=== PATIENT | male | born 1965 | race Hispanic/Latino ===

== ENCOUNTER 2020-05-27 10:47 | Outpatient (CLI) | payer BC, SELFPAY ==
--- NOTE | ~2020-05-27 | MR_ITS ---
EXAMINATION: MR brain/brain stem wo/w con EXAM DATE: 05/27/2020 11:55 INDICATION: Dizziness for one year. Getting worse. No recent trauma. TECHNIQUE: Multi-sequential, multiplanar MR images of the brain, brainstem, internal auditory canals were obtained without contrast. Whole brain sagittal T1, axial diffusion, gradient echo (T2*), T1, T 2, FLAIR sequences obtained. High resolution coronal 3-D FIESTA, coronal T1 FSE, axial T1 FSPGR of t he internal auditory canals. Patient was then injected with 20 cc Multihance contrast intravenously. Postcontrast axial and coronal T1 weighted whole brain, axial and coronal high resolution T1 IAC seq uences obtained. There is no prior study for comparison. FINDINGS: No evidence of mastoid or middle ear opacification. The 7th/8th cranial nerve complexes a re symmetric, normal in course and caliber. No cerebellopontine angle masses. Posterior fossa unrem arkable. There are no areas of restricted diffusion to suggest acute infarction. There is no acute hemorrhage seen on the T2*, a hemosiderin sensitive sequence. No intraparenchymal brain mass. The ventricles a re normal in size. There are no extra-axial collections. Flow voids are seen in the cerebral arteri es on the T2-weighted sequences consistent with their expected patency. The orbits are unremarkable. Soft tissue is unremarkable. There are no areas of abnormal enhancement on the postcontrast image s. IMPRESSION: 1. Unremarkable brain MRI examination. Reviewed, dictated and finalized at location A.
[2020-05-27 11:23] LABS: Estimated Glomerular Filt Rate > 60
== END 2020-05-27 10:48 ==
PROVIDERS: PCP Student in an Organized Health Care Education/Training Program; Visit Provider Student in an Organized Health Care Education/Training Program
DX: R42 Dizziness and giddiness (principal)
CPT/HCPCS: 70553; A9577

== ENCOUNTER 2021-11-18 17:21 | Emergency (ER) | payer OTHER, SELFPAY ==
--- NOTE | ~2021-11-18 | XR_ITS ---
EXAMINATION: XR finger 2nd LT min 2V DATE: 11/18/2021 17:41 INDICATION: Smashing injury to the distal phalanx of the left second digit with numbness and bruising TECHNIQUE: Dorsal palmar, lateral and oblique views of the left second digit were obtained COMPARISON: None FINDINGS: Bone alignment is normal. No fracture. Joint spaces are normal. Mild radial side predominant soft tis shahrzad swelling about the second digit. IMPRESSION: 1. No osseous abnormality. Reviewed, dictated and finalized at location A. [employer] WORK[employer] IMPRESSION: 1. No osseous abnormality.
[2021-11-18 17:23] VITALS: BP 146/85; PULSE 64; RESP 14; TEMP 36.3; O2SAT 98
--- NOTE | 2021-11-18 17:49 | ED.UPPEXIN ---
HPI - Extremity Injury (Upper) General Chief Complaint: Extremity Injury, Upper Stated Complaint: Left hand complaint Time Seen by Provider: 11/18/21 17:27 Source: patient Mode of arrival: ambulatory Limitations: no limitations History of Present Illness HPI narrative: 56-year-old male presents today with complaints of right second digit pain. Patient states he piece of wood hit his finger. Subungual hematoma noted. Patient denies numbness to tingling. Full ROM noted. Patient unsure of tetanus. Related Data Allergies Allergy/AdvReac Type Severity Reaction Status Date / Time No Known Allergies Allergy Verified 11/18/21 18:06 Review of Systems Review of Systems: CONSTITUTIONAL: Denies fever, chills, or sweats. EYES: Denies visual changes, redness, or discharge. ENT: Denies rhinorrhea, congestion, sore throat, or otalgia. CARDIOVASCULAR: Denies chest pain, palpitations, or edema. RESPIRATORY: Denies cough or dyspnea. GASTROINTESTINAL: Denies abdominal pain, nausea, vomiting, or diarrhea. GENITOURINARY: Denies dysuria or hematuria. SKIN: Denies rash or itching. 2nd digit nail purple. MUSCULOSKELETAL: Denies back pain, joint pain, or myalgia. NEUROLOGIC: Denies headache, numbness, dizziness, or weakness. PSYCHIATRIC: Denies anxiety or depression. Exam Narrative: GENERAL: Well-appearing, well-nourished, and in no acute distress. HEAD: Normocephalic, atraumatic. EYES: PERRLA and EOMI. ENT: Nares clear, no rhinorrhea or epistaxis. Mucous membranes moist. Oropharynx without tonsillar hypertrophy exudate or other lesions. Bilateral TMs pearly sandy nonbulging NECK: Supple. No adenopathy or masses. No carotid bruits or JVD CHEST: Clear to auscultation. No respiratory distress. No wheezes rales or rhonchi HEART: Regular rate and rhythm. No murmur heard. Normal peripheral pulses. ABDOMEN: Soft, nontender, nondistended, normal active bowel sounds. EXTREMITIES: Second digit fingernail with subungual hematoma noted. Patient with full range of motion. CMS intact. No edema. SKIN: Warm, dry, no rash. NEURO: No focal deficits. Alert and oriented x3. PSYCH: Normal mood and affect. Course Vital Signs Vital signs: Vital Signs Temperature 36.3 C L 11/18/21 17:23 Pulse Rate 64 11/18/21 17:23 Respiratory Rate 14 11/18/21 17:23 Blood Pressure 146/85 H 11/18/21 17:23 Pulse Oximetry 98 11/18/21 17:23 Temperature 36.3 C L 11/18/21 17:23 Pulse Rate 81 11/18/21 19:00 Respiratory Rate 18 11/18/21 19:00 Blood Pressure 156/81 H 11/18/21 19:00 Pulse Oximetry 99 11/18/21 19:00 Procedures Other Procedure Procedure 1: Other Procedure: [id number]. Procedure explained, Verbal consent obtained. cautery used to drain Subungual hematoma. No anesthesia needed. Betadine to clean nail. Cautery used to burn hole in 2nd digit nail. Moderate amount of blood drained. patient noted relief in pain and pressure. MDM - Extremity Injury (Upper) Differential Diagnosis Differential diagnosis: Likely finger sprain and other (fracture of distal phalnyx, subungual hematoma) Medical Records Attestation: I reviewed the patient's medical records. Imaging Data Attestation: I personally reviewed and interpreted this imaging study as follows: Radiologist's impression: Impressions Finger X-Ray 11/18/21 18:00 IMPRESSION: 1. No osseous abnormality. Discharge Plan Discharge Clinical Impression: Subungual hematoma of fingernail Qualifiers: Encounter type: initial encounter Qualified Code(s): S60.10XA - Contusion of unspecified finger with damage to nail, initial encounter Patient Disposition: Home, Self-Care Condition: Improved Instructions: Antibiotic Form Additional Instructions: The area may continue to drain for a day or more. Please keep it clean and covered when possible. Your nail may end up falling off. Return for any new or worsening concerns. Follow-up/Referrals: Sandra,Ruddy
[2021-11-18] MEDS: ACETAMINOPHEN 500 MG TABLET 1000 MG PO (18:07)
[2021-11-18] MEDS: TETANUS,DIPHTHERIA,AC PERTUSSIS ADULT (0.5 ML) BOOSTRIX IM (18:07)
[2021-11-18 19:00] VITALS: BP 156/81; PULSE 81; RESP 18; O2SAT 99
== END 2021-11-18 19:00 | disposition home or self-care (01) ==
PROVIDERS: Emergency Provider Nurse Practitioner Family
DX: S60.121A Contusion of right index finger with damage to nail, initial encounter (principal); Z23 Encounter for immunization; W22.8XXA Striking against or struck by other objects, initial encounter
CPT/HCPCS: 11740; 73140; 90471; 90715; 99283; A9270

== ENCOUNTER 2021-12-09 19:59 | Emergency (ER) | payer OTHER, SELFPAY ==
[2021-12-09 20:28] VITALS: BP 155/83; PULSE 75; RESP 16; TEMP 37.2; O2SAT 98
--- NOTE | 2021-12-09 22:58 | ED.SKABFB ---
HPI - Skin/Abscess/Foreign Bdy General Chief complaint: Skin/Abscess/Foreign Body Stated complaint: growth on right nare Time Seen by Provider: 12/09/21 22:58 Source: patient and family Mode of arrival: ambulatory Limitations: no limitations History of Present Illness HPI narrative: Patient is a 56-year-old previously healthy male presenting to the emergency department for evaluation of swelling/sore to right nostril. Patient reports it has been present for the past 5 days. Initially presented as a pimple and he was able to express a small amount of pus from it. Patient states it continues to drain, and he has experienced some swelling of his nose. He denies any vision changes or eye pain. No significant facial swelling or redness of the cheeks or mandibular area. He denies difficulty swallowing, shortness of breath. No difficulty opening his mouth or tolerating oral intake. He denies fever or chills, nausea, vomiting, chest pain, abdominal pain. Patient denies history of skin infection in the past. He denies history of diabetes. Related Data Allergies Allergy/AdvReac Type Severity Reaction Status Date / Time No Known Allergies Allergy Verified 12/09/21 20:27 Review of Systems Review of Systems: CONSTITUTIONAL: Denies fever, chills HEENT: Denies rhinorrhea, denies sore throat, reports swelling to right nostril, nasal swelling, pain, purulent discharge CARDIOVASCULAR: Denies chest pain RESPIRATORY: Denies cough or dyspnea. GASTROINTESTINAL: Denies abdominal pain, nausea or vomiting SKIN: Denies rash, reports right naris swelling. MUSCULOSKELETAL: Denies back pain NEUROLOGIC: Denies headache REPLACED BY [facility] Social History Social History (Updated 12/09/21 @ 23:12 by Brittany Colón MD) Smoking status: Never smoker Alcohol intake: never Substance use: never Living arrangements: with family Gender identity (if verbalized by the patient): Male Exam Narrative: GENERAL: Awake, alert, conversant HEAD: Normocephalic, atraumatic. EYES: PERRLA and EOMI. ENT:No rhinorrhea or epistaxis. Mucous membranes moist. Patient with small abscess, right naris with edema to the tip of the nose and mild induration, erythema of nasal tip. This does not extend to nasal bridge. No facial edema, erythema or induration. No facial asymmetry. No trismus. Uvula is midline. No anterior or posterior cervical lymphadenopathy. No neck edema. NECK: Supple. CHEST: No respiratory distress, breathing even and non labored HEART: Regular rate, sinus rhythm ABDOMEN:Non distended, non tender EXTREMITIES: Normal range of motion. No edema. SKIN: Warm, dry, no rash. NEURO:No focal deficits. Alert and oriented x3. Patient ambulatory with a narrow base, steady gait. Course Vital Signs Vital signs: Vital Signs Temperature 37.2 C 12/09/21 20:28 Pulse Rate 75 12/09/21 20:28 Respiratory Rate 16 12/09/21 20:28 Blood Pressure 155/83 H 12/09/21 20:28 Pulse Oximetry 98 12/09/21 20:28 Temperature 37.2 C 12/09/21 20:28 Pulse Rate 75 12/09/21 20:28 Respiratory Rate 16 12/09/21 20:28 Blood Pressure 155/83 H 12/09/21 20:28 Pulse Oximetry 98 12/09/21 20:28 Procedures Abscess I/D face: Date of Incision: 12/09/21 Time of Incision: 23:13 Side (if applicable): right Sedation/analgesia: none Local Anesthetic: none Technique: other (hand expression, debridement ) Amount of fluid expressed (mL): 3 Irrigation: No Packing used?: none I&D Results: Pus and Blood MDM - Skin/Abscess/Foreign Bdy MDM Narrative Medical decision making narrative: Patient presented for evaluation of sore to nasal bridge. Patient with small abscess, surrounding cellulitis, mild induration of the tip of the nose. That excoriated abscess was debrided, with gentle hand expression, purulent discharge was expressed. There is no large significant tracking to deloculated. No packing needs to be plac
[2021-12-09] MEDS: ACETAMINOPHEN 500 MG TABLET 1000 MG PO (23:45)
[2021-12-09] MEDS: CLINDAMYCIN HCL 150 MG CAP 300 MG PO (23:46)
[2021-12-09 23:55] VITALS: BP 157/90; PULSE 76; RESP 16; O2SAT 97
== END 2021-12-09 23:56 | disposition home or self-care (01) ==
PROVIDERS: Emergency Provider Emergency Medicine
DX: J34.0 Abscess, furuncle and carbuncle of nose (principal)
CPT/HCPCS: 10060; 99283; A9270

== ENCOUNTER 2022-04-13 00:19 | Emergency (ER) | payer OTHER, SELFPAY ==
[2022-04-13] VITALS (13 sets, daily range): BP systolic 126–154; BP diastolic 68–87; PULSE 78–101; RESP 16–20; TEMP 37.2–37.7; O2SAT 93–100
--- NOTE | 2022-04-13 01:58 | ED.FEVER ---
HPI - Fever General Chief Complaint: Fever Stated Complaint: FEVER,HEAT EXPOSURE Time Seen by Provider: 04/13/22 01:44 History of Present Illness HPI Narrative: Patient is a 56-year-old male who presents ER with fevers and chills. Ongoing for 2 days. Reports he has been working out in the heat and is wondering if he is just dehydrated. He did take a home COVID test prior to arrival and reports was negative. No nausea or vomiting or diarrhea. No urinary frequency urgency or dysuria. No sinus congestion or sore throat or productive cough. Denies knowledge of sick contacts. Patient is both vaccinated and boosted against COVID. Related Data Allergies Allergy/AdvReac Type Severity Reaction Status Date / Time No Known Allergies Allergy Verified 04/13/22 03:09 Review of Systems Review of Systems: All systems reviewed & are unremarkable except as noted in HPI and below Constitutional: Constitutional: Reports chills, Reports fatigue and Reports fever(s) ENT: Denies nasal congestion and Denies sore throat Respiratory: Respiratory: Denies chest congestion, Denies cough and Denies dyspnea Gastrointestinal: Gastrointestinal: Denies abdominal pain, Denies diarrhea, Denies nausea and Denies vomiting Genitourinary: Genitourinary: Denies dysuria and Denies urinary frequency PMFSH Past Medical History Medical History (Updated 04/13/22 @ 03:47 by Andriy Singh MD) Patient denies significant medical history Surgical History Surgical History (Updated 04/13/22 @ 02:00 by Andriy Singh MD) No pertinent past surgical history Social History Social History (Updated 12/09/21 @ 23:12 by Brittany Colón MD) Smoking status: Never smoker Alcohol intake: never Substance use: never Gender identity (if verbalized by the patient): Male Exam Narrative: GENERAL: Well-appearing, well-nourished, and in no acute distress. HEAD: Normocephalic, atraumatic. ENT: Mucous membranes moist. Well-appearing posterior oropharynx. CHEST: Clear to auscultation. No respiratory distress. HEART: Tachycardic and regular. Normal peripheral pulses. ABDOMEN: Soft, nontender, nondistended. EXTREMITIES: Normal range of motion. No edema. NEURO: Alert and oriented x3. PSYCH: Normal mood and affect. Course Reevaluation(s) Reevaluation #1: Patient resting comfortably. Informed of results. Patient having no symptoms other than fever. Discussed treatment for home. Date: 04/13/22 Time: 03:43 Vital Signs Vital signs: Vital Signs Temperature 99.9 F H 04/13/22 00:27 Pulse Rate 101 H 04/13/22 00:27 Respiratory Rate 16 04/13/22 00:27 Blood Pressure 154/84 H 04/13/22 00:27 Pulse Oximetry 96 04/13/22 00:27 Oxygen Delivery Room Air 04/13/22 00:27 Temperature 99.9 F H 04/13/22 00:27 Pulse Rate 87 04/13/22 03:08 Respiratory Rate 16 04/13/22 03:08 Blood Pressure 137/85 04/13/22 03:08 Pulse Oximetry 93 04/13/22 03:08 Oxygen Delivery Room Air 04/13/22 00:27 MDM - Fever Lab Data Result diagrams: 04/13/22 02:34 04/13/22 02:34 Labs: Lab Results 04/13/22 04/13/22 04/13/22 Range/Units 02:34 02:34 02:34 WBC 10.7 H (4.5-10.0) K/mm3 RBC 5.06 (4.6-6.20) M/mm3 Hgb 14.4 (14.0-18.0) g/dL Hct 44.6 (42.0-52.0) % MCV 88.1 (80-100) fl MCH 28.5 (26-34) pg MCHC 32.3 (32-36) g/dl RDW 13.0 (11.5-14.5) % Plt Count 203 (150-375) k/mm3 MPV 8.9 (7.4-10.4) fl Immature Gran % (Auto) 0.4 (0-0.5) % Neut % (Auto) 79.8 H (45.5-73.1) % Lymph % (Auto) 11.4 L (18.3-44.2) % [place] % (Auto) 8.0 (2.6-8.5) % Eos % (Auto) 0.2 (0-4.4) % Baso % (Auto) 0.2 (0.2-1.2) % Lymph # (Auto) 1.22 (0.9-3.2) K/mm3 [place] # (Auto) 0.9 H (0.1-0.6) K/mm3 Eos # (Auto) 0.0 (0-0.3) K/mm3 Baso # (Auto) 0.0 (0.0-0.1) K/mm3 Abs Immat Gran (auto) 0.04 H (0.00-0.031) K/mm3 Absolute Neuts (auto) 8.5 H (1.3-6
[2022-04-13] MEDS: ACETAMINOPHEN 500 MG TABLET 1000 MG PO (02:27)
[2022-04-13] MEDS: SODIUM CHLORIDE 0.9% IV 1,000 ML 999 ML IV CONT (02:27)
[2022-04-13 02:41] LABS: Basophils Percent Auto 0.2 % (0.2-1.2); Eosinophils Percent Auto 0.2 % (0-4.4); Hematocrit 44.6 % (42.0-52.0); Hemoglobin 14.4 g/dL (14.0-18.0); Immature Granulocyte Absolute 0.04 K/mm3 (0.00-0.031); Immature Granulocyte Percent A 0.4 % (0-0.5); Lymphocytes Absolute Auto 1.22 K/mm3 (0.9-3.2); Lymphocytes Percent Auto 11.4 % (18.3-44.2); Mean Corpuscular HGB Conc 32.3 g/dl (32-36); Mean Corpuscular Hemoglobin 28.5 pg (26-34); Mean Corpuscular Volume 88.1 fl (80-100); Mean Platelet Volume 8.9 fl (7.4-10.4); Monocytes Absolute Auto 0.9 K/mm3 (0.1-0.6); Neutrophils Absolute Auto 8.5 K/mm3 (1.3-6.7); Neutrophils Percent Auto 79.8 % (45.5-73.1); Platelet Count Result 203 k/mm3 (150-375); Red Blood Count 5.06 M/mm3 (4.6-6.20); White Blood Count 10.7 K/mm3 (4.5-10.0)
[2022-04-13 02:52] LABS: Anion Gap 9 mmol/L (8-16); Blood Urea Nitrogen 12 mg/dL (9-20); Calcium 8.7 mg/dL (8.4-10.2); Carbon Dioxide 24 mmol/L (22-30); Chloride 101 mmol/L (98-107); Estimated CRCL calculation 96 ml/min; Estimated Glomerular Filt Rate > 60; Glucose 123 mg/dL (65-110); Potassium 3.9 mmol/L (3.4-5.0); Sodium 134 mmol/L (137-145)
[2022-04-13 03:18] LABS: Influenza A QL RT-PCR Negative (Negative); Influenza B QL RT-PCR Negative (Negative); SARS-CoV-2 RNA PCR Negative
== END 2022-04-13 04:00 | disposition home or self-care (01) ==
PROVIDERS: Emergency Provider Emergency Medicine
DX: B34.9 Viral infection, unspecified (principal); Z20.822 Contact with and (suspected) exposure to COVID-19
CPT/HCPCS: 36415; 80048; 85025; 87502; 96360; 99283; A9270; C9803; J7030; U0003; U0005

== ENCOUNTER 2022-04-14 09:40 | Emergency (ER) | payer OTHER, SELFPAY ==
[2022-04-14] VITALS (15 sets, daily range): BP systolic 107–147; BP diastolic 65–87; PULSE 84–102; RESP 16; TEMP 38.8; O2SAT 93–100
--- NOTE | ~2022-04-14 | XR_ITS ---
XR chest 2V DATE: 04/14/2022 12:42 INDICATION: Fever TECHNIQUE: PA and lateral views COMPARISON: None FINDINGS: There is prominent patchy consolidating in the left upper lobe likely due to pneumonia. Con tinued radiographic follow-up is recommended to ensure clearing in order to exclude any possible obst ructing endobronchial lesion. Mild infiltrate or atelectasis is suggested in the left lower lobe. Normal heart size. No pulmonary vascular congestion or pleural effusion or pneumothorax. Degenerative spurring of the thoracic spine. IMPRESSION: Prominent left upper lobe patchy consolidation, probable infiltrate or atelectasis, left lower lobe. Continued radiographic follow-up recommended to show clearing. Reviewed, dictated and finalized at location B.
--- NOTE | 2022-04-14 10:00 | WPDEDEXPGENP ---
HPI - General Ped General Chief complaint: Fever Stated complaint: fever, vomiting Time Seen by Provider: 04/14/22 09:42 History of Present Illness HPI narrative: 56-year-old male returns to the emergency room for continued subjective fever and generalized malaise. Patient states he was seen in the emergency room yesterday for similar symptoms. Patient was diagnosed with viral syndrome. Patient states he continues to take Tylenol and ibuprofen to manage his fever, but it keeps coming back. Patient now complaining nausea and vomiting. Denies any abdominal pain. Related Data Allergies Allergy/AdvReac Type Severity Reaction Status Date / Time No Known Allergies Allergy Verified 04/14/22 10:16 Pediatric Review of Systems Review of Systems: CONSTITUTIONAL: Reports fever EYES: Denies visual changes, redness, or discharge. ENT: Denies rhinorrhea, congestion, sore throat, or otalgia. CARDIOVASCULAR: Denies chest pain, palpitations, or edema. RESPIRATORY: Denies cough or dyspnea. GASTROINTESTINAL: Reports nausea vomiting GENITOURINARY: Denies dysuria or hematuria. SKIN: Denies rash or itching. MUSCULOSKELETAL: Denies back pain, joint pain, or myalgia. NEUROLOGIC: Denies headache, numbness, dizziness, or weakness. PSYCHIATRIC: Denies anxiety or depression. COUNT INCLUDES THE [facility] Past Medical History Medical History Patient denies significant medical history Surgical History Surgical History No pertinent past surgical history Social History Social History Smoking status: Never smoker Alcohol intake: never Substance use: never Gender identity (if verbalized by the patient): Male Pediatric Exam Narrative: Physical exam: GENERAL: Well-appearing, well-nourished, no physical limitations, and in no acute distress. HEAD: Normocephalic, atraumatic. EYES: Conjunctivae normal, PERRLA and EOMI. CHEST: Clear to auscultation. No respiratory distress. No wheezes rales or rhonchi. No tenderness. HEART: Regular rate and rhythm. No murmur heard. Normal peripheral pulses. ABDOMEN: Soft, nontender, nondistended, normal active bowel sounds. EXTREMITIES: Normal range of motion. No edema. No clubbing or cyanosis SKIN: Warm, dry, no rash. No noted wounds NEURO: No focal deficits. Alert and oriented x3. MAEW. CN's II-XI intact bilaterally, normal gait PSYCH: Cooperative. Normal mood and affect. Course Vital Signs Vital signs: Vital Signs Pulse Rate 102 H 04/14/22 10:11 Respiratory Rate 16 04/14/22 10:11 Blood Pressure 147/85 H 04/14/22 10:11 Pulse Oximetry 98 04/14/22 10:11 Oxygen Delivery Room Air 04/14/22 10:11 Temperature 38.8 C H 04/14/22 11:19 Pulse Rate 102 H 04/14/22 10:11 Respiratory Rate 16 04/14/22 10:11 Blood Pressure 147/85 H 04/14/22 10:11 Pulse Oximetry 99 04/14/22 10:30 Oxygen Delivery Room Air 04/14/22 10:11 Medical Decision Making Vital Signs Vital Signs: Vital Signs Pulse Rate 102 H 04/14/22 10:11 Respiratory Rate 16 04/14/22 10:11 Blood Pressure 147/85 H 04/14/22 10:11 Pulse Oximetry 98 04/14/22 10:11 Oxygen Delivery Room Air 04/14/22 10:11 Temperature 38.8 C H 04/14/22 11:19 Pulse Rate 102 H 04/14/22 10:11 Respiratory Rate 16 04/14/22 10:11 Blood Pressure 147/85 H 04/14/22 10:11 Pulse Oximetry 99 04/14/22 10:30 Oxygen Delivery Room Air 04/14/22 10:11 Lab Data Result diagrams: 04/14/22 10:12 04/14/22 10:12 Labs: Lab Results 04/14/22 04/14/22 04/14/22 Range/Units 10:12 10:12 10:12 WBC 10.0 (4.5-10.0) K/mm3 RBC 4.92 (4.6-6.20) M/mm3 Hgb 14.2 (14.0-18.0) g/dL Hct 43.4 (42.0-52.0) % MCV 88.2 (80-100) fl MCH 28.9 (26-34) pg MCHC 32.7 (32-36) g/dl RDW 13.1 (11.5-14.5) % Plt Count 209 (150-3
[2022-04-14 10:21] LABS: Basophils Percent Auto 0.1 % (0.2-1.2); Hematocrit 43.4 % (42.0-52.0); Hemoglobin 14.2 g/dL (14.0-18.0); Immature Granulocyte Absolute 0.05 K/mm3 (0.00-0.031); Immature Granulocyte Percent A 0.5 % (0-0.5); Lymphocytes Absolute Auto 0.71 K/mm3 (0.9-3.2); Lymphocytes Percent Auto 7.1 % (18.3-44.2); Mean Corpuscular HGB Conc 32.7 g/dl (32-36); Mean Corpuscular Hemoglobin 28.9 pg (26-34); Mean Corpuscular Volume 88.2 fl (80-100); Monocytes Absolute Auto 0.5 K/mm3 (0.1-0.6); Monocytes Percent Auto 5.4 % (2.6-8.5); Neutrophils Absolute Auto 8.7 K/mm3 (1.3-6.7); Neutrophils Percent Auto 86.9 % (45.5-73.1); Platelet Count Result 209 k/mm3 (150-375); Red Blood Count 4.92 M/mm3 (4.6-6.20); Red Cell Distribution Width 13.1 % (11.5-14.5)
[2022-04-14 10:29] LABS: Alanine Aminotransferase 52 U/L (6-50); Albumin Level 4.1 g/dL (3.5-5.1); Alkaline Phosphatase 112 U/L (38-126); Anion Gap 11 mmol/L (8-16); Aspartate Amino Transferase 47 U/L (17-59); Bilirubin,Total 0.6 mg/dL (0.2-1.3); Blood Urea Nitrogen 11 mg/dL (9-20); Calcium 8.6 mg/dL (8.4-10.2); Carbon Dioxide 25 mmol/L (22-30); Chloride 99 mmol/L (98-107); Estimated CRCL calculation 87 ml/min; Estimated Glomerular Filt Rate > 60; Glucose 156 mg/dL (65-110); Lactic Acid Reflex 1.7 mmol/L (0.7-2.0); Potassium 4.1 mmol/L (3.4-5.0); Sodium 135 mmol/L (137-145)
[2022-04-14] MEDS: SODIUM CHLORIDE 0.9% IV 1,000 ML 999 ML IV CONT (10:32)
[2022-04-14] MEDS: ONDANSETRON INJ 4 MG/2 ML VIAL IV PUSH (10:33)
--- NOTE | 2022-04-14 11:03 | PC.NURSE ---
Patient report given to FRANCOIS Thomas. All questions answered and care of patient transferred.
[2022-04-14 11:21] LABS: Add Urine Microscopic? YES; Appearance Urine Clear (Clear); Bilirubin Urine Negative (Negative); Blood Urine 1+ (Negative); Color Urine Yellow (Yellow); Glucose Urine UA Trace mg/dL (Negative); Ketones Urine Negative (Negative); Leukocyte Esterase Ur Negative LEU/UL (Negative); Nitrate Urine Negative (Negative); Protein Urine 2+ mg/dL (Negative); pH Urine 7.5 (5.0-9.0)
[2022-04-14 11:27] LABS: Cellular Casts Urine Present /lpf; Mucus Urine Rare /lpf; RBC Urine 0-2 /hpf (0-2); WBC Urine 0-3 /hpf
[2022-04-14] MEDS: ACETAMINOPHEN 500 MG TABLET 1000 MG PO (12:05)
[2022-04-14 13:07] LABS: SARS-CoV-2 RNA PCR Negative
== END 2022-04-14 13:49 | disposition home or self-care (01) ==
PROVIDERS: Emergency Provider Nurse Practitioner Family
DX: J18.9 Pneumonia, unspecified organism (principal); Z20.822 Contact with and (suspected) exposure to COVID-19
CPT/HCPCS: 36415; 71046; 80053; 81001; 83605; 85025; 96361; 96365; 96375; 99284; A9270; C9803; J0696; J2405; J7030; U0003; U0005

== ENCOUNTER 2025-02-17 18:17 | Emergency (ER) | payer OTHER, SELFPAY ==
--- NOTE | ~2025-02-17 | XR_ITS ---
XR chest 1V portable Ordering provider: Ulysses Boyce MD History: 59 years Male with . fever . Comparison: April 14, 2022 FINDINGS: MEDIASTINUM: The cardiac silhouette is not enlarged. LUNGS: No infiltrates, effusions or pneumothorax. OTHER: No free air under the diaphragm. IMPRESSION: No acute cardiopulmonary pathology. Reviewed, dictated and finalized at location A.
--- OUTSIDE RECORDS SUMMARY | 2025-02-17 18:19 | XMS_ITS | Data Portability ---
Author Organization [facility] Address [address] [facility] [place] [address] Care Team Providers Care Varnish Inspector Name Role Phone ANDREWRUPALI Primary Care Provider Assessment No assessment recorded. Plan of Treatment Reminders Order Date Submit Date Provider Last Modified By Organization Details Last Modified Time Details Appointments None recorded. Lab noninvasiv e colorectal cancer DNA + occult blood screening, QL, stool 2022 023 [facility] (Cologuard Orders Only), [address], [address], [place], [address], 3 19:56:54 CBC w/ auto diff 2022 023 [facility], [address] [place] [address], [address], [place], [address], 3 02:08:33 CMP, serum or plasma 2022 023 [facility], [address] [place] [address], [address], [place], [address], 3 02:08:32 lipid panel, serum 2022 023 [facility], [address] [place] [address], [address], [place], [address], 3 02:08:32 HbA1c (hemoglobi n A1c), blood 2022 023 [facility], [address], [address], [place], [address], 3 12:13:00 TSH + free T4, serum 2022 023 [facility], [address], [address], [place], [address], 3 12:12:59 PSA, total, serum or plasma 2022 023 [facility], [address], [address], [place], [address], 3 12:13:00 hepatic function panel, serum 2014 015 dev [facility], [address] [facility], [address], [place], [address], 5 11:25:41 Referral None recorded. Procedures colonoscop y procedure (PROC) - Is patient on blood thinners?: NPacemaker or defibrilla tor?: NPrep (Colonosco py Procedure) : PEG 3350, Go Lytely, Colyte or Gavalyte G, depending on insurance coverageIf patient has had coronary / vascular stent, provide date: NoIf patient has had heart attack or stroke, provide date: NoHas patient ever had problems with anesthesia or sedation?: NoHas patient had problems with opening mouth or breathing tubes?: NoDoes patient use a wheelchair ?: N [facility] [address], [place], [address], 4 11:21:42 Surgeries None recorded. Imaging None recorded. Medication Orders Dulcolax (bisacodyl ) 5 mg tablet,del ayed release 2023 024 [id number], [address], [place], [place], [id number], 4 10:49:34 Miralax 17 gram/dose oral powder 2023 024 [id number], [address], [place], [place], [id number], 4 10:49:28 Patient TargetsNo targets recorded. Patient Instructions Encounter Date Encounter Id Patient Instructions Last Modified By Organization Details Last Modified Time 08/16/2023 [id number] A healthy lifestyle: care instructions [email or web address] Not available 08/16/2023 13:40:16 10/04/2023 [id number] RL About Your Colonoscopy 1 Day Prep [email or web address] Not available 10/04/2023 10:49:11 Reason for Referral None Reported. Results Created Date Observation Date Name Description Value Unit Range Abnormal Flag Note LastModifiedBy Organization Detail LastModifiedTime 10/24/19 15 10/27/2014 hepat ic funct ion panel , serum total protein 7.5 g/dL REFER ENCE RANGE : CHILD TERESA AND ADULT S: 6.0 - 8.5 Not Available [facility] [address] [place], [address], 10/28/2014 06:09:21 10/24/19 15 10/27/2014 hepat ic funct ion panel , serum albumin 4.6 g/dL REFER ENCE RANGE : 3 - 59Y: 3.5 - 5.5 Not Available [facility] [address] [place], [address], 10/28/2014 06:09:21 10/24/19 15 10/27/2014 hepat ic funct ion panel , serum bilirubin, total 0.3 mg/dL REFER ENCE RANGE : >=18Y : <1.3 Not Available [facility] [address] [place], [address], 10/28/2014 06:09:21 10/24/19 15 10/27/2014 hepat ic funct ion panel , serum bilirubin, direct <0.10 mg/dL REFER ENCE RANGE : CHILD TERESA AND ADULT S: <0.41 Not Available [facility] [address] [place], [address], 10/28/2014 06:09:21 10/24/19 15 10/27/2014 hepat ic funct ion panel , serum alkaline phosphatase 83 U/L REFER ENCE RANGE : >=19Y : <131 Not Available [facility] [address] [place], [address], 10/28/2014 06:09:21 10/24/19 15 10/27/2014 hepat ic funct ion panel , serum AST (SGOT) 20 U/L REFER ENCE RANGE : >=18Y : <38 Not Available [facility] [address] [place], [address], 10/28/2014 06:09:21 10/24/19 15 10/27/2014 hepat ic funct ion panel , serum ALT (SGPT) 15 IU/L REFER ENCE RANGE : >17Y: 0 - 44 Not Available [facility] [address] [place], [address], 10/28/2014 06:09:21 02/25/20 15 02/25/2015 CBC WBC 6.0 x10e3 /uL 3.4-10 .8 Not Available [facility] ([facility]) [address] [place], [address], 02/25/2015 06:20:21 02/25/20 15 02/25/2015 CBC RBC 5.12 x10e6 /uL 4.14-5 .80 Not Available [facility] ([facility]) [address] [place], [address], 02/25/2015 06:20:21 02/25/20 15 02/25/2015 CBC hemoglobin 14.9 g/dL 12.6-1 7.7 Not Available [facility] ([facility]) [address] [place], [address], 02/25/2015 06:20:21 02/25/20 15 02/25/2015 CBC hematocrit 44.3 % 37.5-5 1.0 Not Available [facility] ([facility]) [address] [place], [address], 02/25/2015 06:20:21 02/25/20 15 02/25/2015 CBC MCV 87 fL 79-97 Not Available [facility] ([facility]) [address] [place], [address], 02/25/2015 06:20:21 02/25/20 15 02/25/2015 CBC MCH 29.1 pg 26.6-3 3.0 Not Available [facility] ([facility]) [address] [facility] [place], [address], 02/25/2015 06:20:21 02/25/2002/25/2015 CBC MCHC 33.6 g/dL 31.5-3 5.7 Not Available [facility] ([facility]) [address] [facility] [place], [address], 02/25/2015 06:20:21 02/25/20 15 02/25/2015 CBC RDW 13.9 % 12.3-1 5.4 Not Available [facility] ([facility]) [address] [facility] [place], [address], 02/25/2015 06:20:21 02/25/2002/25/2015 CBC platelets 247 x10e3 /uL 150-37 9 Not Available [facility] ([facility] [address] [facility] [place], [address], 02/25/2015 06:20:21 02/25/2002/25/2015 CBC neutrophils 68 % Not Avai lable [facility] ([facility]) [address] [facility] [place], [address], 02/25/2015 06:20:21 02/25/20 15 02/25/2015 CBC lymphs 23 % Not Available [facility] ([facility]) [address] [place], [address], 02/25/2015 06:20:21 02/25/20 15 02/25/2015 CBC monocytes 6 % Not Availa ble [facility] ([facility]) [address] [place], [address], 02/25/2015 06:20:21 02/25/20 15 02/25/2015 CBC eos 3 % Not Available [facility] ([facility]) [address] [place], [address], 02/25/2015 06:20:21 02/25/20 15 02/25/2015 CBC basos 0 % Not Available [facility] ([facility]) [address] [place], [address], 02/25/2015 06:20:21 02/25/20 15 02/25/2015 CBC immature cells TURNSTILE ATTENDANT Not Available [facility] ([facility]) [address] [place], [address], 02/25/2015 06:20:21 02/25/20 15 02/25/2015 CBC neutrophils (absolute) 4.1 x10e3 /uL 1.4-7. 0 Not Available [facility] ([facility]) [address] [place], [address], 02/25/2015 06:20:21 02/25/20 15 02/25/2015 CBC lymphs (absolute) 1.4 x10e3 /uL 0.7-3. 1 Not Available [facility] ([facility]) [address] [place], [address], 02/25/2015 06:20:21 02/25/20 15 02/25/2015 CBC monocytes(ab solute) 0.3 x10e3 /uL 0.1-0. 9 Not Available [facility] ([facility]) [address] [facility] [place], [address], 02/25/2015 06:20:21 02/25/20 15 02/25/2015 CBC eos (absolute) 0.2 x10e3 /uL 0.0-0. 4 Not Available [facility] ([facility]) [address] [facility] [place], [address], 02/25/2015 06:20:21 02/25/20 15 02/25/2015 CBC baso (absolute) 0.0 x10e3 /uL 0.0-0. 2 Not Available [facility] ([facility]) [address] [facility] [place], [address], 02/25/2015 06:20:21 02/25/2002/25/2015 CBC immature granulocytes 0 % Not Available [facility] ([facility]) [address] [facility] [place], [address], 02/25/2015 06:20:21 02/25/2002/25/2015 CBC immature grans (abs) 0.0 x10e3 /uL 0.0-0. 1 Not Available [facility] ([facility]) [address] [facility] [place], [address], 02/25/2015 06:20:21 02/25/2002/25/2015 CBC NRBC TURNSTILE ATTENDANT Not Available [facility] ([facility]) [address] [facility] [place], [address], 02/25/2015 06:20:21 02/25/2002/25/2015 CBC hematology comments: TURNSTILE ATTENDANT Not Available [facility] ([facility]) [address] [facility] [place], [address], 02/25/2015 06:20:21 02/25/2002/25/2015 CMP, serum or plasm a glucose, serum 90 mg/dL 65-99 Not Available [facility] ([facility]) [address] [place], [address], 02/25/2015 06:20:22 02/25/20 15 02/25/2015 CMP, serum or plasm a BUN 13 mg/dL 6-24 Not Available [facility] ([facility]) [address] [facility], [place], [address], 02/25/2015 06:20:22 02/25/20 15 02/25/2015 CMP, serum or plasm a creatinine, serum 0.89 mg/dL 0.76-1 .27 Not Available [facility] ([facility]) [address] [place], [address], 02/25/2015 06:20:22 02/25/20 15 02/25/2015 CMP, serum or plasm a eGFR if nonafricn AM 102 mL/mi n/1.7 3 >59 Not Available [facility] ([facility]) [address] [place], [address], 02/25/2015 06:20:22 02/25/20 15 02/25/2015 CMP, serum or plasm a eGFR if africn AM 118 mL/mi n/1.7 3 >59 Not Available [facility] ([facility]) [address] [facility], [place], [address], 02/25/2015 06:20:22 02/25/20 15 02/25/2015 CMP, serum or plasm a BUN/creatini ne ratio 15 9-20 Not Available [facility] ([facility]) [address] [place], [address], 02/25/2015 06:20:22 02/25/20 15 02/25/2015 CMP, serum or plasm a sodium, serum 140 mmol/ L 134-14 4 Not Available [facility] ([facility]) [address] [place], [address], 02/25/2015 06:20:22 02/25/20 15 02/25/2015 CMP, serum or plasm a potassium, serum 4.5 mmol/ L 3.5-5. 2 Not Available [facility] ([facility]) [address] [facility] [place], [address], 02/25/2015 06:20:22 02/25/2002/25/2015 CMP, serum or plasm a chloride, serum 102 mmol/ L 97-108 Not Available [facility] ([facility]) [address] [facility] [place], [address], 02/25/2015 06:20:22 02/25/2002/25/2015 CMP, serum or plasm a carbon dioxide, total 21 mmol/ L 18-29 Not Available [facility] ([facility]) [address] [facility] [place], [address], 02/25/2015 06:20:22 02/25/20 15 02/25/2015 CMP, serum or plasm a calcium, serum 9.5 mg/dL 8.7-10 .2 Not Available [facility] ([facility]) [address] [place], [address], 02/25/2015 06:20:22 02/25/2002/25/2015 CMP, serum or plasm a protein, total, serum 7.4 g/dL 6.0-8. 5 Not Available [facility] ([facility]) [address] [place], [address], 02/25/2015 06:20:22 02/25/2002/25/2015 CMP, serum or plasm a albumin, serum 4.6 g/dL 3.5-5. 5 Not Available [facility] ([facility]) [address] [place], [address], 02/25/2015 06:20:22 02/25/2002/25/2015 CMP, serum or plasm a globulin, total 2.8 g/dL 1.5-4. 5 Not Available [facility] ([facility]) [address] [place], [address], 02/25/2015 06:20:22 02/25/20 15 02/25/2015 CMP, serum or plasm a A/G ratio 1.6 1.1-2. 5 Not Available [facility] ([facility]) [address] [facility] [place], [address], 02/25/2015 06:20:22 02/25/20 15 02/25/2015 CMP, serum or plasm a bilirubin, total 0.5 mg/dL 0.0-1. 2 Not Available [facility] ([facility]) [address] [facility] [place], [address], 02/25/2015 06:20:22 02/25/20 15 02/25/2015 CMP, serum or plasm a alkaline phosphatase, S 92 IU/L 39-117 Not Available [facility] ([facility]) [address] [facility] [place], [address], 02/25/2015 06:20:22 02/25/2002/25/2015 CMP, serum or plasm a AST (SGOT) 16 IU/L 0-40 Not Available [facility] ([facility]) [address] [facility] [place] [place], [address], 02/25/2015 06:20:22 02/25/20 15 02/25/2015 CMP, serum or plasm a ALT (SGPT) 14 IU/L 0-44 Not Available [facility] ([facility]) [address] [place], [address], 02/25/2015 06:20:22 02/25/2002/25/2015 urina lysis , compl ete specific gravity 1.025 1.005- 1.030 Not Available [facility] ([facility]) [address] [place], [address], 02/25/2015 06:20:22 02/25/2002/25/2015 urina lysis , compl ete pH 6.0 5.0-7. 5 Not Available [facility] ([facility]) [address] [place], [address], 02/25/2015 06:20:22 02/25/20 15 02/25/2015 urina lysis , compl ete urine-color YELLOW yellow Not Available [facility] ([facility]) [address] [place], [address], 02/25/2015 06:20:22 02/25/20 15 02/25/2015 urina lysis , compl ete appearance CLEAR clear Not Available [facility] ([facility]) [address] [place], [address], 02/25/2015 06:20:22 02/25/20 15 02/25/2015 urina lysis , compl ete WBC esterase NEGATI VE negati ve Not Available [facility] ([facility]) [address] [place], [address], 02/25/2015 06:20:22 02/25/20 15 02/25/2015 urina lysis , compl ete protein NEGATI VE negati ve/tra ce Not Available [facility] ([facility]) [address] [place], [address], 02/25/2015 06:20:22 02/25/20 15 02/25/2015 urina lysis , compl ete glucose NEGATI VE negati ve Not Available [facility] ([facility]) [address] [place], [address], 02/25/2015 06:20:22 02/25/20 15 02/25/2015 urina lysis , compl ete glucose reflex TURNSTILE ATTENDANT Not Available [facility] ([facility]) [address] [place], [address], 02/25/2015 06:20:22 02/25/20 15 02/25/2015 urina lysis , compl ete ketones NEGATI VE negati ve Not Available [facility] ([facility]) [address] [place], [address], 02/25/2015 06:20:22 02/25/20 15 02/25/2015 urina lysis , compl ete occult blood NEGATI VE negati ve Not Available [facility] ([facility]) [address] [facility], [place], [address], 02/25/2015 06:20:22 02/25/20 15 02/25/2015 urina lysis , compl ete bilirubin NEGATI VE negati ve Not Available [facility] ([facility]) [address] [place], [address], 02/25/2015 06:20:22 02/25/20 15 02/25/2015 urina lysis , compl ete urobilinogen ,semi-qn 0.2 mg/dL 0.0-1. 9 Not Available [facility] ([facility]) [address] [place], [address], 02/25/2015 06:20:22 02/25/20 15 02/25/2015 urina lysis , compl ete nitrite, urine NEGATI VE negati ve Not Available [facility] ([facility]) [address] [place], [address], 02/25/2015 06:20:22 02/25/20 15 02/25/2015 urina lysis , compl ete microscopic examination COMMEN T MICRO SCOPI C NOT INDIC ATED AND NOT PERFO RMED. Not Available [facility] ([facility]) [address] [place], [address], 02/25/2015 06:20:22 02/25/20 15 02/25/2015 lipid panel , serum cholesterol, total 198 mg/dL 100-19 9 Not Available [facility] ([facility]) [address] [place], [address], 02/25/2015 06:20:23 02/25/20 15 02/25/2015 lipid panel , serum triglyceride s 258 mg/dL 0-149 high Not Available [facility] ([facility]) [address] [place], [address], 02/25/2015 06:20:23 02/25/20 15 02/25/2015 lipid panel , serum HDL cholesterol 39 mg/dL >39 low ACCOR DING TO ATP-I II GUIDE LINES , HDL-C >59 MG/DL IS CONSI DERED A NEGAT TARA RISK FACTO R FOR CHD. Not Available [facility] ([facility]) [address] [facility], [place], [address], 02/25/2015 06:20:23 02/25/20 15 02/25/2015 lipid panel , serum VLDL cholesterol jesus 52 mg/dL 5-40 high Not Available [facility] ([facility]) [address] [place], [address], 02/25/2015 06:20:23 02/25/20 15 02/25/2015 lipid panel , serum LDL cholesterol calc 107 mg/dL 0-99 high Not Available [facility] ([facility]) [address] [place], [address], 02/25/2015 06:20:23 02/25/20 15 02/25/2015 lipid panel , serum comment: TURNSTILE ATTENDANT Not Available [facility] ([facility]) [address] [place], [address], 02/25/2015 06:20:23 02/25/2002/25/2015 lipid panel , serum T. chol/HDL ratio 5.1 ratio _unit s 0.0-5. 0 high T. CHOL/ HDL RATIO MEN WOMEN 1/2 AVG.R ISK 3.4 3.3 AVG.R ISK 5.0 4.4 2X AVG.R ISK 9.6 7.1 3X AVG.R ISK 23.4 11.0 Not Available [facility] ([facility]) [address] [place], [address], 02/25/2015 06:20:23 06/16/20 15 02/25/2015 HbA1c (hemo globi n A1c), blood hemoglobin A1C 5.3 % 4.8-5. 6 INCRE ASED RISK FOR DIABE ISAAC: 5.7 - 6.4 DIABE ISAAC: >6.4 GLYCE CARTER CONTR OL FOR ADULT S WITH DIABE ISAAC: <7.0 Not Available [facility] ([facility]) [address] [facility], [place], [address], 02/25/2015 06:20:23 02/25/20 15 02/25/2015 TSH, serum or plasm a TSH 1.650 uIU/m L 0.450- 4.500 Not Available [facility] ([facility]) [address] [facility], [place], [address], 02/25/2015 06:20:23 08/16/20 23 08/17/2023 LIPID PANEL cholesterol, total 230 mg/dL 100-19 9 above high normal Not Available [facility] [address] [place], [address], 08/17/2023 02:08:32 08/16/20 23 08/17/2023 LIPID PANEL triglyceride s 183 mg/dL 0-149 above high normal Not Available [facility] [address] [place], [address], 08/17/2023 02:08:32 08/16/20 23 08/17/2023 LIPID PANEL HDL cholesterol 48 mg/dL 40-999 Not Available [facility] [address] [place], [address], 08/17/2023 02:08:32 08/16/20 23 08/17/2023 LIPID PANEL VLDL cholesterol jesus 37 mg/dL 5-40 Not Available [facility] [address] [place], [address], 08/17/2023 02:08:32 08/16/20 23 08/17/2023 LIPID PANEL LDL chol calc ([facility]) 171 mg/dL 0-99 above high normal Not Available [facility] [address] [place], [address], 08/17/2023 02:08:32 08/16/20 23 08/17/2023 COMP. METAB OLIC PANEL (14) glucose 102 mg/dL 70-99 above high normal Not Available [facility] [address] [place], [address], 08/17/2023 02:08:32 08/16/20 23 08/17/2023 COMP. METAB OLIC PANEL (14) BUN 13 mg/dL 6-24 Not Available [facility] [address] [place] [address], [address], 08/17/2023 02:08:32 08/16/20 23 08/17/2023 COMP. METAB OLIC PANEL (14) creatinine 0.98 mg/dL 0.76-1 .27 Not Available [facility] [address] [place] [address], [address], 08/17/2023 02:08:32 08/16/20 23 08/17/2023 COMP. METAB OLIC PANEL (14) eGFR 91 >=60 Units for eGFR value s are mL/mi n/1.7 3 The eGFR Calcu latio n has not been valid ated for patie nts under the age of 18. If test resul ts are displ ayed for a patie nt under the age of 18, disre elizabeth that value . Not Available [facility] [address] [place], [address], 08/17/2023 02:08:32 08/16/20 23 08/17/2023 COMP. METAB OLIC PANEL (14) BUN/creatini ne ratio 13 9-20 Not Available [facility] [address] [place], [address], 08/17/2023 02:08:32 08/16/20 23 08/17/2023 COMP. METAB OLIC PANEL (14) sodium 142 mmol/ L 134-14 4 Not Available [facility] [address] [place], [address], 08/17/2023 02:08:32 08/16/20 23 08/17/2023 COMP. METAB OLIC PANEL (14) potassium 5.6 mmol/ L 3.5-5. 2 above high normal Not Available [facility] [address] [place], [address], 08/17/2023 02:08:32 08/16/20 23 08/17/2023 COMP. METAB OLIC PANEL (14) chloride 105 mmol/ L 96-106 Not Available [facility] [address] [place], [address], 08/17/2023 02:08:32 08/16/20 23 08/17/2023 COMP. METAB OLIC PANEL (14) carbon dioxide, total 28 mmol/ L 20-29 Not Available [facility] [address] [place], [address], 08/17/2023 02:08:32 08/16/20 23 08/17/2023 COMP. METAB OLIC PANEL (14) calcium 10.1 mg/dL 8.7-10 .2 Not Available [facility] [address] [place], [address], 08/17/2023 02:08:32 08/16/20 23 08/17/2023 COMP. METAB OLIC PANEL (14) protein, total 7.5 g/dL 6.0-8. 5 Not Available [facility] [address] [place], [address], 08/17/2023 02:08:32 08/16/20 23 08/17/2023 COMP. METAB OLIC PANEL (14) albumin 4.8 g/dL 3.8-4. 9 Not Available [facility] [address] [place], [address], 08/17/2023 02:08:32 08/16/20 23 08/17/2023 COMP. METAB OLIC PANEL (14) globulin, total 2.7 g/dL 1.5-4. 5 Not Available [facility] [address] [place], [address], 08/17/2023 02:08:32 08/16/20 23 08/17/2023 COMP. METAB OLIC PANEL (14) A/G ratio 1.7 1.2-2. 2 Not Available [facility] [address] [place] [address], [address], 08/17/2023 02:08:32 08/16/20 23 08/17/2023 COMP. METAB OLIC PANEL (14) bilirubin, total 0.7 mg/dL 0.0-1. 2 Not Available [facility] [address] [place], [address], 08/17/2023 02:08:32 08/16/20 23 08/17/2023 COMP. METAB OLIC PANEL (14) alkaline phosphatase 97 IU/L 44-121 Not Available [facility] [address] [place], [address], 08/17/2023 02:08:32 08/16/20 23 08/17/2023 COMP. METAB OLIC PANEL (14) AST (SGOT) 23 IU/L 0-40 Not Available [facility] [address] [place] [address], [address], 08/17/2023 02:08:32 08/16/20 23 08/17/2023 COMP. METAB OLIC PANEL (14) ALT (SGPT) 21 IU/L 0-44 Not Available [facility] [address] [place] [address], [address], 08/17/2023 02:08:32 08/16/20 23 08/16/2023 CBC WITH DIFFE RENTI AL/PL ATELE T WBC 5.0 x10e3 /uL 3.4-10 .8 Not Available [facility] [address] [place], [address], 08/17/2023 02:08:33 08/16/20 23 08/16/2023 CBC WITH DIFFE RENTI AL/PL ATELE T RBC 5.63 x10e6 /uL 4.14-5 .80 Not Available [facility] [address] [place], [address], 08/17/2023 02:08:33 08/16/20 23 08/16/2023 CBC WITH DIFFE RENTI AL/PL ATELE T hemoglobin 16.0 g/dL 13.0-1 7.7 Not Available [facility] [address] [place], [address], 08/17/2023 02:08:33 08/16/20 23 08/16/2023 CBC WITH DIFFE RENTI AL/PL ATELE T hematocrit 49.8 % 37.5-5 1.0 Not Available [facility] [address] [place], [address], 08/17/2023 02:08:33 08/16/2008/16/2023 CBC WITH DIFFE RENTI AL/PL ATELE T MCV 89 fL 79-97 Not Available [facility] [address] [place], [address], 08/17/2023 02:08:33 08/16/20 23 08/16/2023 CBC WITH DIFFE RENTI AL/PL ATELE T MCH 28.4 pg 26.6-3 3.0 Not Available [facility] [address] [place], [address], 08/17/2023 02:08:33 08/16/20 23 08/16/2023 CBC WITH DIFFE RENTI AL/PL ATELE T MCHC 32.1 g/dL 31.5-3 5.7 Not Available [facility] [address] [place], [address], 08/17/2023 02:08:33 08/16/20 23 08/16/2023 CBC WITH DIFFE RENTI AL/PL ATELE T RDW 12.4 % 11.5-1 4.5 Not Available [facility] [address] [place], [address], 08/17/2023 02:08:33 08/16/20 23 08/16/2023 CBC WITH DIFFE RENTI AL/PL ATELE T platelets 279 x10e3 /uL 150-45 0 Not Available [facility] Department [address] [place], [address], 08/17/2023 02:08:33 08/16/20 23 08/16/2023 CBC WITH DIFFE RENTI AL/PL ATELE T neutrophils 52 % notest b. Not Available [facility] Department [address] [place], [address], 08/17/2023 02:08:33 08/16/20 23 08/16/2023 CBC WITH DIFFE RENTI AL/PL ATELE T lymphs 37 % notest b. Not Available [facility] Department [address] [place], [address], 08/17/2023 02:08:33 08/16/20 23 08/16/2023 CBC WITH DIFFE RENTI AL/PL ATELE T monocytes 7 % notest b. Not Available [facility] Department [address] [place], [address], 08/17/2023 02:08:33 08/16/20 23 08/16/2023 CBC WITH DIFFE RENTI AL/PL ATELE T eos 4 % notest b. Not Available [facility] Department [address] [place], [address], 08/17/2023 02:08:33 08/16/20 23 08/16/2023 CBC WITH DIFFE RENTI AL/PL ATELE T basos 1 % notest b. Not Available [facility] Department [address] [place], [address], 08/17/2023 02:08:33 08/16/20 23 08/16/2023 CBC WITH DIFFE RENTI AL/PL ATELE T neutrophils (absolute) 2.6 x10e3 /uL 1.4-7. 0 Not Available [facility] Department [address] [place], [address], 08/17/2023 02:08:33 08/16/20 23 08/16/2023 CBC WITH DIFFE RENTI AL/PL ATELE T lymphs (absolute) 1.9 x10e3 /uL 0.7-3. 1 Not Available [facility] Department [address] [place], [address], 08/17/2023 02:08:33 08/16/20 23 08/16/2023 CBC WITH DIFFE RENTI AL/PL ATELE T monocytes(ab solute) 0.3 x10e3 /uL 0.1-0. 9 Not Available [facility] Department [address] [place], [address], 08/17/2023 02:08:33 08/16/20 23 08/16/2023 CBC WITH DIFFE RENTI AL/PL ATELE T eos (absolute) 0.2 x10e3 /uL 0.0-0. 4 Not Available [facility] Department [address] [place], [address], 08/17/2023 02:08:33 08/16/20 23 08/16/2023 CBC WITH DIFFE RENTI AL/PL ATELE T baso (absolute) 0.0 x10e3 /uL 0.0-0. 2 Not Available [facility] Department [address] [place], [address], 08/17/2023 02:08:33 08/16/20 23 08/16/2023 CBC WITH DIFFE RENTI AL/PL ATELE T immature granulocytes 0 % notest b. Not Available [facility] Department [address] [place], [address], 08/17/2023 02:08:33 08/16/20 23 08/16/2023 CBC WITH DIFFE RENTI AL/PL ATELE T immature grans (abs) 0.0 x10e3 /uL 0.0-0. 1 Not Available [facility] Department [address] [place], [address], 08/17/2023 02:08:33 08/16/20 23 08/16/2023 CBC WITH DIFFE RENTI AL/PL ATELE T NRBC 0 % 0-0 Not Available [facility] Department [address] [place], [address], 08/17/2023 02:08:33 08/16/20 23 08/17/2023 TSH+F REE T4 TSH 1.490 uIU/m L 0.450- 4.500 Not Available [facility] ([facility]) [address] [place], [address], 08/17/2023 12:12:59 08/16/2008/17/2023 TSH+F REE T4 T4,free(dire ct) 1.25 NG/dL 0.82-1 .77 Not Available [facility] ([facility]) [address] [place], [address], 08/17/2023 12:12:59 08/16/2008/17/2023 HEMOG LOBIN A1C hemoglobin A1C 5.7 % 4.8-5. 6 above high normal Predi abete s: 5.7 - 6.4 Diabe isaac: >6.4 Glyce carter contr ol for adult s with diabe isaac: <7.0 Not Available [facility] ([facility]) [address] [place], [address], 08/17/2023 12:13:00 08/16/2008/17/2023 PROST ATE-S PECIF IC AG prostate specific Ag 0.4 NG/mL 0.0-4. 0 Malick ECLIA metho dolog y. Accor ding to the Ameri can Urolo gical Assoc iatio n, Serum PSA shoul d decre ase and remai n at undet ectab le level s after radic al prost atect steve. The AUA defin es bioch emica l recur rence as an initi al PSA value 0.2 ng/mL or great er follo wed by a subse quent confi rmato ry PSA value 0.2 ng/mL or great er. Value s obtai yogi with diffe rent assay metho ds or kits canno t be used inter box eably . Resul ts canno t be inter prete d as absol [place] evide nce of the prese nce or absen ce of rasheed petersen se. Not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
[2025-02-17 18:24] VITALS: BP 133/75; PULSE 64; RESP 16; TEMP 37; O2SAT 94
[2025-02-17 18:51] LABS: Basophils Percent Auto 0.2 % (0.2-1.2); Hematocrit 46.2 % (42.0-52.0); Hemoglobin 15.3 g/dL (14.0-18.0); Immature Granulocyte Absolute 0.07 K/mm3 (0.00-0.031); Immature Granulocyte Percent A 0.5 % (0-0.5); Lymphocytes Absolute Auto 0.53 K/mm3 (0.9-3.2); Mean Corpuscular HGB Conc 33.1 g/dl (32-36); Mean Corpuscular Volume 87.5 fl (80-100); Mean Platelet Volume 9.2 fl (7.4-10.4); Monocytes Absolute Auto 0.5 K/mm3 (0.1-0.6); Neutrophils Percent Auto 91.3 % (45.5-73.1); Platelet Count Result 226 k/mm3 (150-375); Red Blood Count 5.28 M/mm3 (4.6-6.20); Red Cell Distribution Width 13.3 % (11.5-14.5); White Blood Count 13.1 K/mm3 (4.5-10.0)
[2025-02-17 19:12] LABS: Alanine Aminotransferase 22 U/L (6-50); Albumin Level 4.4 g/dL (3.5-5.1); Alkaline Phosphatase 80 U/L (38-126); Anion Gap 9 mmol/L (4-12); Aspartate Amino Transferase 34 U/L (17-59); Bilirubin,Total 0.8 mg/dL (0.2-1.3); Blood Urea Nitrogen 18 mg/dL (9-20); Calcium 9.4 mg/dL (8.4-10.2); Carbon Dioxide 19 mmol/L (22-30); Chloride 108 mmol/L (98-107); Estimated CRCL calculation 73 ml/min; Estimated Glomerular Filt Rate > 60; Glucose 119 mg/dL (65-110); Lipase 86 U/L (23-300); Potassium 3.9 mmol/L (3.4-5.0); Sodium 136 mmol/L (137-145); Total Protein 7.9 g/dL (6.3-8.2)
[2025-02-17 19:27] LABS: Influenza A QL RT-PCR Negative (Negative); Influenza B QL RT-PCR Negative (Negative); RSV RNA, RT-PCR Negative (Negative); SARS-CoV-2 RNA PCR Negative (Negative)
[2025-02-17 19:29] VITALS: BP 138/80; PULSE 91; RESP 18; O2SAT 95
[2025-02-17 19:35] LABS: Glucose Point of Care 115 mg/dl (65-105)
[2025-02-17] MEDS: ONDANSETRON HCL ODT 4 MG TABLET PO (19:45)
[2025-02-17] MEDS: SODIUM CHLORIDE 0.9% IV 1,000 ML 999 ML IV CONT (20:07)
--- NOTE | 2025-02-17 20:07 | ED_ITS ---
HPI - General Adult General Chief complaint: Nausea/Vomiting/Diarrhea Stated complaint: nausea, vomiting, diarrhea, chills Time Seen by Provider: 02/17/25 19:54 History of Present Illness HPI narrative: Patient is a 59-year-old male who presents to the emergency department this evening complaining of nausea, vomiting and diarrhea since yesterday. Patient states that he feels feverish and has been having chills. Denies any similar symptoms in the past denies any sick contacts at home. Denies any chest pain or shortness of breath, any abdominal pain. There were no additional modifying, alleviating, or precipitating factors at this time. Related Data Allergies Allergy/AdvReac Type Severity Reaction Status Date / Time No Known Allergies Allergy Verified 04/14/22 10:16 Review of Systems 2 Review of Systems: All systems are reviewed and are negative unless stated otherwise in the HPI. [facility] Past Medical History Medical History Patient denies significant medical history Surgical History Surgical History No pertinent past surgical history Social History Social History Smoking status: Never smoker Alcohol intake: never Substance use: never Living arrangements: with family Gender identity (if verbalized by the patient): Male Exam 2 Narrative: General: Alert, awake, afebrile, in no acute distress. HEENT: PERRL, no rhinorrhea, no post nasal drip, oropharynx clear. Neck: Trachea midline, no JVD, no lymphadenopathy. Cardiovascular: Regular rate and rhythm, no murmurs, rubs or gallops, no peripheral edema. Respiratory: Clear to auscultation bilaterally, no tachypnea, no wheezing, no rhonchi, no rubs, no respiratory distress. Abdomen: Soft, nontender, nondistended, no rebound, no guarding, no peritoneal signs. Musculoskeletal: No joint swelling or deformity, normal muscle tone. Skin: No rashes or petechia, no signs of infection. Psychiatric: Alert and oriented, normal behavior and judgment for situation. Neurological: Alert and oriented to person, place, and time. Follows all commands. No focal deficits, speech is clear and fluent. Course Vital Signs Vital signs: Vital Signs Temperature 98.6 F 02/17/25 18:24 Pulse Rate 64 02/17/25 18:24 Respiratory Rate 16 02/17/25 18:24 Blood Pressure 133/75 02/17/25 18:24 Pulse Oximetry 94 02/17/25 18:24 Oxygen Delivery Room Air 02/17/25 18:24 Temperature 98.6 F 02/17/25 18:24 Pulse Rate 91 02/17/25 19:29 Respiratory Rate 18 02/17/25 19:29 Blood Pressure 138/80 02/17/25 19:29 Pulse Oximetry 95 02/17/25 19:29 Oxygen Delivery Room Air 02/17/25 18:24 Medical Decision Making MDM Narrative Medical decision making narrative: The patient was evaluated by myself in the emergency department. History is obtained from patient who is an independent historian and physical exam was performed. External medical records were reviewed at this time. IV was established and pertinent tests were ordered. Patient was administered 1 L IV fluid bolus with normal saline and 4 mg of IV Zofran for nausea. Laboratory results obtained revealing a leukocytosis of 13.1 otherwise unremarkable. Viral swabs negative for COVID/influenza/RSV. Urinalysis unremarkable. Imaging studies obtained included CXR which was independently interpreted by me revealing no acute process, which is pending final radiology interpretation. Differential diagnosis considerations include acute viral syndrome, gastroenteritis, dehydration, electrolyte derangements. Comorbidities impacting this visit include none. I have evaluated and discussed social determinants of health with the patient that could potentially impact subsequent diagnosis and treatment plans. On repeat assessment of the patient, reevaluation revealed that the patient is doing well and is in no acute distress. Patient symptoms have improved since he arrived to our emergency department. Repeat vital signs were all reviewed and noted to be stable. Differential diagnosis and treatment plan were discussed with the patient at bedside. Patient agrees with discussion and after shared medical decision making agrees with discharge. All questions were answered to the patient's satisfaction. Patient will follow up with his PCP in 3-5 days. A script for Zofran was sent to patient's pharmacy to use as needed for nausea/vomiting. Patient was provided with strict return precautions and instructed to return to the emergency department if any new or worsening symptoms develop. The patient was discharged in stable condition. Vital Signs Vital Signs: Vital Signs Temperature 98.6 F 02/17/25 18:24 Pulse Rate 64 02/17/25 18:24 Respiratory Rate 16 02/17/25 18:24 Blood Pressure 133/75 02/17/25 18:24 Pulse Oximetry 94 02/17/25 18:24 Oxygen Delivery Room Air 02/17/25 18:24 Temperature 98.6 F 02/17/25 18:24 Pulse Rate 91 02/17/25 19:29 Respiratory Rate 18 02/17/25 19:29 Blood Pressure 138/80 02/17/25 19:29 Pulse Oximetry 95 02/17/25 19:29 Oxygen Delivery Room Air 02/17/25 18:24 Lab Data 02/17/25 18:44 02/17/25 18:44 Labs: Lab Results 02/17/25 02/17/25 02/17/25 Range/Units 18:44 19:32 19:39 WBC 13.1 H (4.5-10.0) K/mm3 RBC 5.28 (4.6-6.20) M/mm3 Hgb 15.3 (14.0-18.0) g/dL Hct 46.2 (42.0-52.0) % MCV 87.5 (80-100) fl MCH 29.0 (26-34) pg MCHC 33.1 (32-36) g/dl RDW 13.3 (11.5-14.5) % Plt Count 226 (150-375) k/mm3 MPV 9.2 (7.4-10.4) fl Immature Gran % (Auto) 0.5 (0-0.5) % Neut % (Auto) 91.3 H (45.5-73.1) % Lymph % (Auto) 4.0 L (18.3-44.2) % [place] % (Auto) 4.0 (2.6-8.5) % Eos % (Auto) 0.0 (0-4.4) % Baso % (Auto) 0.2 (0.2-1.2) % Lymph # (Auto) 0.53 L (0.9-3.2) K/mm3 [place] # (Auto) 0.5 (0.1-0.6) K/mm3 Eos # (Auto) 0.0 (0-0.3) K/mm3 Baso # (Auto) 0.0 (0.0-0.1) K/mm3 Abs Immat Gran (auto) 0.07 H (0.00-0.031) K/mm3 Absolute Neuts (auto) 12.0 H (1.3-6.7) K/mm3 Absolute Nucleated RBC 0.000 (0.0-0.012) K/mm3 Nucleated RBC % 0.0 (0.0-0.2) % Sodium 136 L (137-145) mmol/L Potassium 3.9 (3.4-5.0) mmol/L Chloride 108 H (98-107) mmol/L Carbon Dioxide 19 L (22-30) mmol/L Anion Gap 9 (4-12) mmol/L BUN 18 (9-20) mg/dL Creatinine 1.16 (0.7-1.3) mg/dL Estim Creat Clear Calc 73 ml/min Estimated GFR > 60 (59 - ) Glucose 119 H (65-110) mg/dL POC Capillary Glucose 115 H (65-105) mg/dl Calcium 9.4 (8.4-10.2) mg/dL Total Bilirubin 0.8 (0.2-1.3) mg/dL AST 34 (17-59) U/L ALT 22 (6-50) U/L Alkaline Phosphatase 80 (38-126) U/L Total Protein 7.9 (6.3-8.2) g/dL Albumin 4.4 (3.5-5.1) g/dL Lipase 86 (23-300) U/L Urine Color Dark yellow (Yellow) Urine Appearance Clear (Clear) Urine pH 7.5 (5.0-9.0) Ur Specific [place] 1.036 H (1.001-1.035) Urine Protein 2+ H (Negative) mg/dL Urine Glucose (UA) Negative (Negative) mg/dL Urine Ketones Trace H (Negative) mg/dL Ur Blood (Man) Negative (Negative) Urine Nitrate Negative (Negative) Urine Bilirubin Negative (Negative) Urine Urobilinogen 0.2 (<2.0) mg/dL Leukocyte Esterase Rfl Negative (Negative) MICHAEL/UL Urine RBC 0-2 (0-2) /hpf Urine WBC 0-5 (0-3) /hpf Ur Squamous Epith Cells None seen (Few) /hpf Urine Bacteria None seen /hpf Urine Casts 0-2 Influenza A (RT-PCR) Negative (Negative) Influenza B (RT-PCR) Negative (Negative) RSV (RT-PCR) Negative (Negative) SARS-CoV-2 RNA (RT-PCR) Negative (Negative) Discharge Plan Discharge Clinical Impression: Gastroenteritis Patient Disposition: Home Condition: Improved Instructions: Antibiotic Form, Gastroenteritis (ED) Additional Instructions: Please follow-up with your family doctor within the next 3-5 days. Return to the ED if any new or worsening symptoms develop. Take the prescribed Zofran as needed for nausea/vomiting. Patient Language: Cymro Prescriptions: New ondansetron 4 mg tablet,disintegrating 4 mg PO Q8H PRN (Reason: nausea and vomiting) Qty: 10 0RF No Action ibuprofen 400 mg tablet 400 mg PO TID PRN (Reason: fever or pain) 10 Days Qty: 30 0RF acetaminophen 500 mg capsule 500 mg PO Q6H PRN (Reason: fever or pain) Qty: 30 0RF clindamycin HCl 300 mg capsule 300 mg PO Q8H 7 Days Qty: 21 0RF doxycycline monohydrate 100 mg capsule 100 mg PO BID 7 Days Qty: 14 0RF ondansetron 4 mg tablet,disintegrating 4 mg PO Q8H Qty: 14 0RF Follow-up/Referrals: Lilly,BRENDON Kenyon [Primary Care Provider] - 3 Days Time of Disposition: 21:15
[2025-02-17 20:13] LABS: Add Urine Microscopic? YES; Appearance Urine Clear (Clear); Bacteria Urine None Seen /hpf; Bilirubin Urine Negative (Negative); Blood Urine Negative (Negative); Color Urine Dark Yellow (Yellow); Glucose Urine UA Negative (Negative); Ketones Urine Trace mg/dL (Negative); Leukocyte Esterase Ur Negative LEU/UL (Negative); Nitrate Urine Negative (Negative); Non Pathogenic Casts 0-2; Protein Urine 2+ mg/dL (Negative); RBC Urine 0-2 /hpf (0-2); Specific Grav Ur 1.036 (1.001-1.035); Squamous Epithelial Cell Urine None Seen /hpf (Few); Urobilinogen Urine 0.2 mg/dL (<2.0); WBC Urine 0-5 /hpf (0-3); pH Urine 7.5 (5.0-9.0)
--- OUTSIDE RECORDS SUMMARY | 2025-02-17 20:24 | XMS_ITS | Clinical Summary ---
Author Organization [facility] Address [address] [place] [address] Care Team Providers Care Dry Cleaner Name Role Phone Unavailable Primary Care Provider Unavailabl e Source Comments [facility],non-owned Affiliates and Associated Physician Practices is amultiple site organization consisting of ambulatory clinics and hospital sitesin [place], [place], [place]. This disclosure is being madepursuant to the Care Everywhere program and may not contain all information available regarding this patient. Last updated 18.[facility] Active Problems Problem Noted Date Diagnosed Date Closed fracture of orbital floor 10/02/2015 Overview (12/11/2017): IMO load Closed fracture of nasal bone 01/19/2015 Social History Tobacco Use Types Packs/Day Years Used Date Smoking Tobacco: Every Day Alcohol Use Standard Drinks/Week Comments Yes 0 (1 standard drink = 0.6 oz pur e alcohol) Sex and Gender Information Value Date Recorded Sex Assigned at Not on file Legal Sex Male 6:18 PM [employer]GER [employer] Gender Identity Not on file Sexual Orientation Not on file Last Filed Vital Signs Vital Sign Reading Time Taken Comments Blood Pressure 138/86 01/19/2015 12:00 PM CDT Pulse 81 01/19/2015 12:00 PM CDT Temperature 36.9 C (98.4 F) 01/19/2015 12:00 PM CDT Respiratory Rate 16 01/05/2015 12:02 AM CDT Oxygen Saturation 100% 01/04/2015 11:01 PM CDT Inhaled Oxygen Concentration - - Weight 98.4 kg (217 lb) 01/19/2015 12:00 PM CDT Height 175.3 cm (5' 9) 01/19/2015 12:00 PM CDT Body Mass Index 32.05 01/19/2015 12:00 PM CDT Plan of Treatment Health Maintenance Due Date Last Done Comments GABRIELA (AGES 45-75) - COL ON CA SCREENING 1967 COLON MONITORING 1967 COLONOSCOPY - COLON CA SCREENING 1967 CT COLONOGRAPHY - COLON CA SCREENING 1967 Colorectal Cancer Screening 1967 FIT - COLON CA SCREENING 1967 FLEX SIG - COLON CA SCREENING 1967 LIPID TESTING 1967 HIV SCREENING 1982 HEPATITIS C SCREENING 09/17/1985 DTAP/TDAP/TD VACCINES (1 - Tdap) 1986 HEPATITIS B VACCINE (1 of 3 - 19+ 3-dose series) 1986 PNEUMOCOCCAL VACCINE 50+ (1 of 1 - PCV) 2017 ZOSTER VACCINE (1 of 2) 2017 COVID-19 VACCINE ( - 2023-2 5 season) 2024 DEPRESSION SCREENING 09/11/2024 INFLUENZA VACCINE (Season Ended) 2025 HIB VACCINE Aged Out No longer eligi ble based on patient's age to complete this topic HPV VACCINE Aged Out No longer eligi ble based on patient's age to complete this topic MENINGOCOCCAL (Group B) VACC INE SHARED DECISION-MAKING Aged Out No longer eligibl e based on patient's age to complete this topic MENINGOCOCCAL GROUPS A/C/Y/W VACCINE Aged Out No longer eligible b ased on patient's age to complete this topic
[2025-02-17 21:28] VITALS: BP 142/81; PULSE 81; RESP 18; O2SAT 96
== END 2025-02-17 21:28 | disposition home or self-care (01) ==
PROVIDERS: Registered Nurse; Emergency Provider Emergency Medicine; PCP Physician Assistant
DX: K52.9 Noninfective gastroenteritis and colitis, unspecified (principal); Z20.822 Contact with and (suspected) exposure to COVID-19
CPT/HCPCS: 36415; 71045; 80053; 81001; 82948; 83690; 85025; 87637; 96361; 96374; 99284; A9270; J7030